=== PATIENT | female | born 1945 | race Caucasian/White ===

== ENCOUNTER 2017-10-19 06:49 | Day surgery (SDC) | payer MEDICARE, OTHER ==
[~2017-10-19 06:49] MED LIST: BUPIVACAINE HCL 0.75% INJ/PF (7.5 MG/1 ML) 10 ML SDV OS PRN; KETOROLAC TROMETHAMINE 0.45% 4 DROP/0.4 ML DROPERETTE ONE; KETOROLAC TROMETHAMINE 0.45% 4 DROP/0.4 ML DROPERETTE OS PRN; LIDOCAINE 4% INJ/PF (40 MG/ML) 5 ML AMPUL OS PRN; TETRACAINE HCL 0.5% OPH SOLN 0.6 ML DROPERETTE ONE
[2017-10-19] MEDS ORDERED: FENTANYL CITRATE INJ/PF 100 MCG/2 ML AMPUL ONE (06:58)
[2017-10-19] MEDS ORDERED: MIDAZOLAM 2 MG/2 ML INJ ONE (06:58)
[2017-10-19] MEDS ORDERED: EPINEPHRINE INJ/PF 1 MG/1 ML AMPULE ONE (07:12)
[2017-10-19] MEDS ORDERED: LIDOCAINE 1% INJ-PF (10 MG/ML) 30 ML SDV ONE ×2 (07:13→08:18)
[2017-10-19] MEDS ORDERED: CHONDR SU A NA/HYALUR INTRAOC KIT (SURGICARE) ONE (07:13)
[2017-10-19] MEDS: CYCLOPENTOLATE 0.2%/PHENYLEPHRINE 1% OPH SOLN 2 ML OS PRN ×3 (07:20→07:41)
[2017-10-19] MEDS: TROPICAMIDE 1% OPH SOLN 3 ML OS PRN ×3 (07:20→07:41)
[2017-10-19] MEDS: BESIFLOXACIN HCL 0.6% OPH SUSP 5 ML BOTTLE OS PRN ×4 (07:21→08:22)
[2017-10-19] MEDS: TETRACAINE HCL 0.5% OPH SOLN 0.6 ML DROPERETTE OS PRN ×2 (07:22→07:43)
--- NOTE | 2017-10-19 08:43 | [facility] OPERATIVE REPORT E ---
[facility] Operative Report NAME: LAUREN ROLLINS AGE: 72Y DATE OF SURGERY: 10/12/2017 ROOM: PREOPERATIVE DIAGNOSIS: CATARACT, LEFT EYE. POSTOPERATIVE DIAGNOSIS: CATARACT, LEFT EYE. OPERATION: PHACOEMULSIFICATION WITH POSTERIOR CHAMBER INRAOPERATIVE LENS, LEFT EYE. SURGEON: GILBERTO PURCELL M.D. ANESTHESIA: Topical with MAC. INDICATION FOR SURGERY: Difficulty with night driving and reading. Best corrected visual acuity 20/50. PROCEDURE: The patient was brought to the Operating Room and placed on the operative table. Following tetracaine drops, topical anesthesia was administered. This consisted of instrument wipe pledgets soaked in a solution of 4% Xylocaine mixed with 0.75% Marcaine in a 1:2 ratio. A 2 x 1 cm pledget was placed in the superior fornix. A 1 x 1 cm pledget was placed in the inferior fornix. The eye was patched shut for 5 minutes. The patch was removed. The eye was sterilely prepped and draped in the usual manner. Lid speculum was placed in the eye. The pledgets were removed. 4-0 black silk sutures were placed around the superior and the inferior rectus muscles to be used as traction. A conjunctival peritomy was made at the 10 o'clock position. Hemostasis was obtained with bipolar cautery. A posterior limbal groove was created using a crescent knife and dissected anteriorly towards the cornea. A sharp point blade was used to create a paracentesis site at the 2 o'clock position. A 2.4 mm keratome was used to enter the anterior chamber through the groove. Viscoelastic was injected into the anterior chamber. An anterior capsulotomy was performed using Utrata forceps in a capsulorrhexis fashion. Hydrodissection and hydrodelineation were performed. Phacoemulsification was performed in [id number]-koq-rctbcpw technique. A total of 5.59 seconds phaco time was used. Following this, the I/A unit was used to remove residual cortex. Viscoelastic was injected into the capsular bag. Intraocular lens model SN60WF, 25.0 diopters, serial number [id number] was placed in the capsular bag. The I/A unit was used to remove residual viscoelastic. The wound was seen to be watertight under high and low pressure, and no sutures were placed. The intraocular lens was well centered. The pressure was adjusted in the eye to normal pressure. The 4-0 black silk sutures and lid speculum were removed. The eye was shielded after Besivance drops were placed. The patient tolerated the procedure well and was sent to the Recovery Room in good condition. DICTATING PHYSICIAN: GILBERTO PURCELL M.D. DICTATING PHYSICIAN: GILBERTO PURCELL M.D. DICTATING PHYSICIAN: GILBERTO PURCELL M.D. [id number] Y#: [id number] ID: [id number] JOB#: [id number] ACCT: [id number] cc:GILBERTO PURCELL M.D. >
--- NOTE | 2017-10-19 08:49 | [facility] DISCHARGE SUMMARY E ---
[facility] Discharge Summary NAME: LAUREN ROLLINS AGE: 72Y ADMITTED: 10/19/2017 DISCHARGED: 10/19/2017 HOSPITAL COURSE: The patient is a 72-year-old lady who underwent an uneventful cataract extraction with intraocular lens implant left eye on 10/19/17. She will be discharged to home. She is instructed to resume preoperative medications, take Tylenol as needed for discomfort, to keep her eye shielded, to use Besivance, Durezol and Ilevro at 3:00 p.m. and 8:00 p.m., and to follow up in my office in 1 day. DICTATING PHYSICIAN: GILBERTO PURCELL M.D. [id number] PHY#: [id number] ID: [id number] JOB#: [id number] ACCT: [id number] cc:GILBERTO PURCELL M.D. >
[2017-10-20] MEDS ORDERED: CYCLOPENTOLATE 0.2%/PHENYLEPHRINE 1% OPH SOLN 2 ML OS PRN ×2 (05:00)
[2017-10-20] MEDS ORDERED: TROPICAMIDE 1% OPH SOLN 3 ML OS PRN ×2 (05:00)
[2017-10-20] MEDS ORDERED: BESIFLOXACIN HCL 0.6% OPH SUSP 5 ML BOTTLE OS PRN ×2 (05:00)
[2017-10-20] MEDS ORDERED: KETOROLAC TROMETHAMINE 0.45% 4 DROP/0.4 ML DROPERETTE OS PRN ×2 (05:00)
[2017-10-20] MEDS ORDERED: LIDOCAINE 4% INJ/PF (40 MG/ML) 5 ML AMPUL OS PRN ×2 (05:00)
[2017-10-20] MEDS ORDERED: TETRACAINE HCL 0.5% OPH SOLN 0.6 ML DROPERETTE OS PRN ×2 (05:00)
[2017-10-20] MEDS ORDERED: BUPIVACAINE HCL 0.75% INJ/PF (7.5 MG/1 ML) 10 ML SDV OS PRN ×2 (05:00)
== END 2017-10-19 09:09 | disposition home or self-care (01) ==
LOC: SC 06:49
PROVIDERS: ATTEND Ophthalmology
PROC: 08RK3JZ Replacement of Left Lens with Synthetic Substitute, Percutaneous Approach (ICD-10-PCS; principal; 2017-10-19 08:00)
DX: H25.813 Combined forms of age-related cataract, bilateral (principal); M19.90 Unspecified osteoarthritis, unspecified site; I10 Essential (primary) hypertension; H40.033 Anatomical narrow angle, bilateral; H04.123 Dry eye syndrome of bilateral lacrimal glands; I49.9 Cardiac arrhythmia, unspecified; H52.4 Presbyopia; H43.813 Vitreous degeneration, bilateral; K21.9 Gastro-esophageal reflux disease without esophagitis; E66.9 Obesity, unspecified; Z88.0 Allergy status to penicillin; Z68.41 Body mass index [BMI] 40.0-44.9, adult; Z79.899 Other long term (current) drug therapy
CPT/HCPCS: 66984; V2632; J3490 ×2; 142; J0171; J2250; J3010

== ENCOUNTER 2017-11-11 10:07 | Day surgery (SDC) | payer MEDICARE, OTHER ==
[~2017-11-11 10:07] MED LIST changes: +BUPIVACAINE HCL 0.75% INJ/PF (7.5 MG/1 ML) 10 ML SDV OD PRN; -BUPIVACAINE HCL 0.75% INJ/PF (7.5 MG/1 ML) 10 ML SDV OS PRN; +CHONDR SU A NA/HYALUR INTRAOC KIT (SURGICARE) ONE; +EPINEPHRINE INJ/PF 1 MG/1 ML AMPULE ONE; +KETOROLAC TROMETHAMINE 0.45% 4 DROP/0.4 ML DROPERETTE OD PRN; -KETOROLAC TROMETHAMINE 0.45% 4 DROP/0.4 ML DROPERETTE ONE; -KETOROLAC TROMETHAMINE 0.45% 4 DROP/0.4 ML DROPERETTE OS PRN; +LIDOCAINE 1% INJ-PF (10 MG/ML) 30 ML SDV ONE; +LIDOCAINE 4% INJ/PF (40 MG/ML) 5 ML AMPUL OD PRN; -LIDOCAINE 4% INJ/PF (40 MG/ML) 5 ML AMPUL OS PRN; -TETRACAINE HCL 0.5% OPH SOLN 0.6 ML DROPERETTE ONE
[2017-11-11] MEDS: TROPICAMIDE 1% OPH SOLN 3 ML OD PRN ×3 (10:17→10:37)
[2017-11-11] MEDS: BESIFLOXACIN HCL 0.6% OPH SUSP 5 ML BOTTLE OD PRN ×3 (10:17→11:23)
[2017-11-11] MEDS: CYCLOPENTOLATE 0.2%/PHENYLEPHRINE 1% OPH SOLN 2 ML OD PRN ×3 (10:17→10:37)
[2017-11-11] MEDS: TETRACAINE HCL 0.5% OPH SOLN 0.6 ML DROPERETTE OD PRN ×2 (10:18→10:37)
[2017-11-11] MEDS ORDERED: MIDAZOLAM 2 MG/2 ML INJ ONE (10:48)
--- NOTE | 2017-11-11 11:39 | [facility] OPERATIVE REPORT E ---
[facility] NAME: LAUREN ROLLINS AGE: 72Y DATE OF SURGERY: 11/11/2017 ROOM: PREOPERATIVE DIAGNOSIS: Cataract, right eye.. POSTOPERATIVE DIAGNOSIS: Cataract, right eye. PROCEDURE PERFORMED: Phacoemulsification with posterior chamber intraocular lens, right eye. SURGEON: Jazmin Purcell M.D. ANESTHESIA: Topical with MAC. INDICATIONS FOR SURGERY: Narrow anterior chamber angles, difficulty reading road signs. BEST CORRECTED VISUAL ACUITY: 20/50. DESCRIPTION OF PROCEDURE: The patient was brought to the operating room and placed on the operative table. Following tetracaine drops, topical anesthesia was administered. This consisted of instrument wipe pledgets soaked in a solution of 4% Xylocaine mixed with 0.75% Marcaine in a 1:2 ratio. A 2 x 1 cm pledget was placed in the superior fornix. A 1 x 1 cm pledget was placed in the inferior fornix. The eye was patched shut for 5 minutes. The patch was removed. The eye was sterilely prepped and draped in the usual manner. Lid speculum was placed in the eye. The pledgets were removed, 4-0 black silk sutures were placed around the superior and the inferior rectus muscles to be used as traction. A conjunctival peritomy was made at the 10 o'clock position. Hemostasis was obtained with bipolar cautery. A posterior limbal groove was created using a crescent knife and dissected anteriorly towards the cornea. A sharp point blade was used to create a paracentesis site at the 2 o'clock position. A 2.4 mm keratome was used to enter the anterior chamber through the groove. Viscoelastic was injected into the anterior chamber. An anterior capsulotomy was performed using Utrata forceps in a capsulorrhexis fashion. Hydrodissection and hydrodelineation were performed. Phacoemulsification was performed in yqdwon-pxg-hynxlnq technique. Total phaco time 6.6 CDE. Following this, the I/A unit was used to remove residual cortex. Viscoelastic was injected into the capsular bag. Intraocular lens Model SN60WF, 24.5 diopters, serial number [id number] was placed in the capsular bag. The I/A unit was used to remove residual viscoelastic. The wound was seen to be watertight under high and low pressure, and no sutures were placed. The intraocular lens was well centered. The pressure was adjusted in the eye to normal pressure. The 4-0 black silk sutures and lid speculum were removed. The eye was shielded after Besivance drops were placed. The patient tolerated the procedure well and was sent to the recovery room in good condition. DICTATING PHYSICIAN: JAZMIN PURCELL M.D. [id number] PHY#: [id number] ID: [id number] JOB#: [id number] ACCT: [id number] cc:JAZMIN PURCELL M.D. >
--- NOTE | 2017-11-11 11:49 | [facility] DISCHARGE SUMMARY E ---
[facility] Discharge Summary NAME: LAUREN ROLLINS AGE: 72Y ADMITTED: 11/11/2017 DISCHARGED: 11/11/2017 HOSPITAL COURSE: The patient is a 72-year-old lady who underwent uneventful cataract extraction with intraocular lens implant, right eye on 11/11/2017. She will be discharged to home. She was instructed to resume preoperative medications, to take Tylenol as needed for discomfort, to keep her eye shielded, to use Besivance, Durezol, and Ilevro at 3:00 p.m. and 8:00 p.m., and to follow up in my office in 1 day. DICTATING PHYSICIAN: GILBERTO PURCELL M.D. [id number] PHY#: [id number] ID: [id number] JOB#: [id number] ACCT: [id number] cc:GILBERTO PURCELL M.D. >
== END 2017-11-11 12:04 | disposition home or self-care (01) ==
LOC: SC 10:07
PROVIDERS: ATTEND Ophthalmology
DX: H25.811 Combined forms of age-related cataract, right eye (principal); Z96.1 Presence of intraocular lens; I10 Essential (primary) hypertension; K21.9 Gastro-esophageal reflux disease without esophagitis; I49.9 Cardiac arrhythmia, unspecified; Z79.899 Other long term (current) drug therapy
CPT/HCPCS: 66984; V2632; J2250; J3490 ×4; A9270; J0171; 142

== ENCOUNTER 2019-01-09 07:33 | Inpatient (IN) | payer MEDICARE, OTHER ==
--- NOTE | 2018-12-22 23:21 | EKG REPORT ---
SEVERITY:- ABNORMAL ECG - SINUS RHYTHM ANTERIOR INFARCT, AGE INDETERMINATE : Confirmed by: Jorge Burroughs 22-Dec-2018 23:20:50
[~2019-01-09 07:33] MED LIST changes: -BUPIVACAINE HCL 0.75% INJ/PF (7.5 MG/1 ML) 10 ML SDV OD PRN; +BUPIVACAINE INJ/PF LIPOSOME/PF 266 MG/20 ML SDV INJ PRN; -CHONDR SU A NA/HYALUR INTRAOC KIT (SURGICARE) ONE; +CLINDAMYCIN 600 MG/D5W RTU 600 MG/50 ML RTUPB IV PRN; -EPINEPHRINE INJ/PF 1 MG/1 ML AMPULE ONE; +IBUPROFEN 800 MG in NORMAL SALINE 250 ML IV PRN; -KETOROLAC TROMETHAMINE 0.45% 4 DROP/0.4 ML DROPERETTE OD PRN; +LACTATED RINGERS 1000 ML IV PRN; +LIDOCAINE 0.5% INJ-PF (5 MG/ML) 50 ML SDV SUBCUT PRN; -LIDOCAINE 1% INJ-PF (10 MG/ML) 30 ML SDV ONE; -LIDOCAINE 4% INJ/PF (40 MG/ML) 5 ML AMPUL OD PRN; +OXYCODONE HCL SR 10 MG TABLET PO PRN; +PANTOPRAZOLE SODIUM 20 MG TABLET.DR PO PRN; +VANCOMYCIN HCL 1,000 MG in DEXTROSE 5%-WATER 250 ML IV PRN
[2019-01-09] MEDS ORDERED: PANTOPRAZOLE SODIUM 20 MG TABLET.DR PO ONE (07:46)
[2019-01-09] MEDS ORDERED: OXYCODONE HCL SR 10 MG TABLET PO ONE (07:46)
[2019-01-09] MEDS ORDERED: CEFAZOLIN INJ 1 GM VIAL ONE (07:47)
[2019-01-09] MEDS ORDERED: MIDAZOLAM 2 MG/2 ML INJ ONE (08:16)
[2019-01-09] MEDS ORDERED: ONDANSETRON HCL INJ/PF 4 MG/2 ML SDV ONE ×2 (08:16→13:13)
[2019-01-09] MEDS ORDERED: PROPOFOL INJ 200 MG/20 ML VIAL IV ONE (08:17)
[2019-01-09] MEDS ORDERED: TRANEXAMIC ACID INJ/PF 1,000 MG/10 ML SDV IV ONE ×2 (08:17→12:23)
[2019-01-09] MEDS ORDERED: THROMBIN (BOVINE) TOPICAL 20000 UNIT VIAL ONE (09:04)
[2019-01-09] MEDS ORDERED: BUPIVACAINE HCL 0.25% /EPINEPHRINE INJ/PF 30 ML SDV ONE (09:04)
[2019-01-09] MEDS ORDERED: THROMBIN (BOVINE) TOPICAL 5000 UNIT VIAL ONE (09:04)
[2019-01-09] MEDS ORDERED: CLINDAMYCIN 600 MG/D5W RTU 600 MG/50 ML RTUPB IV ONE (09:40)
[2019-01-09] MEDS ORDERED: DIPHENHYDRAMINE HCL 50 MG/ML VIAL IV PRN ×2 (10:48→10:59)
[2019-01-09] MEDS ORDERED: MORPHINE SULFATE 10 MG/ML INJ IV PRN ×3 (10:48→17:44)
[2019-01-09] MEDS ORDERED: FENTANYL CITRATE INJ/PF 100 MCG/2 ML AMPUL IV PRN ×2 (10:48)
[2019-01-09] MEDS ORDERED: PROMETHAZINE HCL INJ 25 MG/1 ML VIAL IV PRN ×3 (10:48→17:35)
[2019-01-09] MEDS ORDERED: OXYCODONE HCL IR 5 MG TABLET PO PRN (10:59)
[2019-01-09] MEDS ORDERED: MAG HYDROX/AL HYDROX/SIMETH SUSP 30 ML UDCUP PO PRN (10:59)
[2019-01-09] MEDS ORDERED: ACETAMINOPHEN 325 MG TABLET PO PRN (10:59)
[2019-01-09] MEDS ORDERED: ZOLPIDEM TARTRATE 5 MG TABLET PO PRN (10:59)
[2019-01-09] MEDS ORDERED: ONDANSETRON 4 MG TAB.RAPDIS PO PRN (10:59)
--- NOTE | 2019-01-09 11:03 | Operative Report ---
Operative Report DATE OF SURGERY: 01/09/19 PREOPERATIVE DIAGNOSIS: Right knee arthritis OPERATION: Right knee arthroplasty SURGEON: NOE RIGGINS ANESTHESIA: Spinal TISSUE REMOVED OR ALTERED: Bone to pathology ESTIMATED BLOOD LOSS: 100 INTRAOPERATIVE FINDINGS: Loose bodies PROCEDURE: Implants used: Femur: Size 5 [place] triathlon CR cemented femur Tibia: 4 tibia Tibial liner: 11 mm CS insert Patella: 35 mm oval patella Procedure with the patient supine on the operating table the right the limb is prepped and draped in a sterile fashion. The limb was elevated for exsanguination and the tourniquet inflated to 280 torr. A standard midline median parapatellar approach the knee is taken. Access is gained to the femoral canal through the intercondylar notch. Intramedullary alignment instrumentation used to resect 10 mm of distal femur in 5 of valgus. Sizing guide indicated a size 5 femur. Appropriate cutting jig is then used to fashion anterior posterior and chamfer cuts. A trial reduction femurs performed and this is judged to be adequate. Attention was next turned to the tibia. Using an extra medullary alignment system 9 millimeters was resected off the lateral tibial plateau. This is sized to a size 4 tibia. A trial reduction was now performed with a 5 femur and a 4 tibia using a 11 millimeters spacer. It is full extension and central patellofemoral tracking. The articular surface the patella was next resected using an oscillating saw. All trial implants were removed. Polymethylmethacrylate is mixed and used to cement the above implants in place. On adequate curing the cement excess cement was removed the tourniquet was deflated hemostasis obtained the wound is then closed in layers using interrupted Vicryl followed by dorian. A sterile compressive dressing was applied and the patient returned to recovery room in satisfactory condition.
--- NOTE | 2019-01-09 12:11 | RADIOLOGY REPORT (SQ) ---
EXAM DESCRIPTION: KNEE RIGHT 2 VIEWS COMPLETED DATE/TIME: 01/09/2019 11:46 am REASON FOR STUDY: Post OP -Long Cassette in PACU M17.11 UNILATERAL PRIMARY OSTEOARTHRITIS, RIGHT KN EE COMPARISON: None. NUMBER OF VIEWS: Two view(s). TECHNIQUE: Digital radiographic images of the right knee post-procedure. LIMITATIONS: None. FINDINGS: BONES: No worrisome or unexpected findings post-procedure. DEVICE: Total knee arthroplasty SOFT TISSUES: No worrisome findings. Expected postoperative soft tissue changes. IMPRESSION: SATISFACTORY POSTOPERATIVE RIGHT KNEE. TECHNICAL DOCUMENTATION: JOB ID: [id number] [employer]- All Rights Reserved Reading location - IP/workstation name: [email or web address]
[2019-01-09] MEDS ORDERED: MORPHINE SULFATE 10 MG/ML INJ ONE (13:28)
[2019-01-09] MEDS: MORPHINE SULFATE 10 MG/ML INJ IV PRN ×2 (14:54→16:12)
[2019-01-09] MEDS: LOSARTAN POTASSIUM 25 MG TABLET PO SCH (16:12)
[2019-01-09] MEDS: IBUPROFEN 800 MG in NORMAL SALINE 250 ML IV SCH (17:53)
[2019-01-09] MEDS: SENNOSIDES/DOCUSATE 8.6-50 MG 1 EACH TABLET PO SCH (17:59)
[2019-01-09] MEDS: PREGABALIN 75 MG CAPSULE PO SCH (17:59)
[2019-01-09] MEDS: RINGERS SOLUTION,LACTATED 1,000 ML IV PRN (18:01)
[2019-01-09] MEDS: OXYCODONE HCL SR 10 MG TABLET PO SCH (21:04)
[2019-01-09] MEDS ORDERED: VANCOMYCIN HCL 1,000 MG in DEXTROSE 5%-WATER 250 ML IV ONE (22:59)
[2019-01-10] MEDS: IBUPROFEN 800 MG in NORMAL SALINE 250 ML IV SCH ×3 (01:07→17:16)
[2019-01-10] MEDS: PANTOPRAZOLE SODIUM 40 MG TABLET.DR PO SCH (05:09)
[2019-01-10 06:58] LABS: HEMOGLOBIN 11.2 g/dL (12.0-15.5); MEAN CORPUSCULAR HEMOGLOBIN 29.6 pg (27.0-33.4); MEAN CORPUSCULAR HGB CONC 33.1 g/dL (32.0-36.0); MEAN CORPUSCULAR VOLUME 90 fl (80-97); PLATELET COUNT 206 10^3/uL (150-450); RED CELL DISTRIBUTION WIDTH 13.7 % (11.5-14.0); WHITE BLOOD COUNT 5.8 10^3/uL (4.0-10.5)
--- NOTE | 2019-01-10 07:00 | PDOC DISCHARGE SUMMARY ---
General - Admit/Disc Date/PCP Admission Date/Primary Care Provider: 01/09/19 07:33 SHAVON SUH MD Discharge Date: 01/10/19 - Discharge Diagnosis (1) Arthritis of right knee Is this a current diagnosis for this admission?: Yes - Additional Information Resuscitation Status: Full Code Home Medications: Celecoxib [Celebrex 200 mg Capsule] 200 mg PO DAILY 12/22/18 Carboxymethylcellulose Sodium [Refresh Tears] 1 drop OU BID 01/09/19 Diltiazem HCl [Cardizem Cd 120 mg Capsule] 120 mg PO DAILY 01/09/19 Nystatin [Mycostatin Topical Powder 15 gm] 1 applic TP BID 01/09/19 Pantoprazole Sodium [Protonix [address] Tablet] 40 mg PO QAM 01/09/19 Telmisartan [Micardis 20 mg Tablet] 20 mg PO DAILY 01/09/19 Tramadol HCl [Ultram 50 mg Tablet] 50 mg PO Q6HP PRN 01/09/19 History of Present Illness History of Present Illness: LAUREN ROLLINS is a 73 year old female Patient is a 73-year-old white female with progressive right knee pain and functional disability secondary to arthritis. Patient is admitted for elective right knee arthroplasty. Hospital Course Hospital Course: Patient is admitted through the operating motion undergoes an uncomplicated right knee arthroplasty. She is returned to floor in satisfactory condition. She makes progress with physical therapy on the first postoperative day. Her pain is well controlled. Physical Exam Vital Signs: Temp Pulse Resp BP Pulse Ox 36.3 C 71 18 106/44 L 86 L 01/09/19 20:55 01/10/19 04:27 01/09/19 20:55 01/10/19 04:27 01/10/19 04:27 Intake & Output 01/08/19 01/09/19 01/10/19 06:59 06:59 06:59 Intake Total 6187 Output Total 50 Balance 6137 Weight 119.8 kg Physical Exam: Middle-aged white female sleeping soundly in bed. When awoken she is alert, oriented, and appropriate. General appearance: PRESENT: no acute distress, mild distress Head exam: PRESENT: normocephalic Respiratory exam: PRESENT: unlabored Cardiovascular exam: PRESENT: RRR Pulses: PRESENT: +1 pedal pulses bilateral Vascular exam: PRESENT: normal capillary refill GI/Abdominal exam: PRESENT: soft Rectal exam: PRESENT: deferred Extremities exam: PRESENT: other - Right lower extremity dressing clean dry and intact Neurological exam: PRESENT: alert, awake, oriented to person, oriented to place, oriented to time, oriented to situation. ABSENT: motor sensory deficit Psychiatric exam: PRESENT: appropriate affect, normal mood. ABSENT: homicidal ideation, suicidal ideation Skin exam: PRESENT: dry, intact, warm. ABSENT: cyanosis, rash Results Impressions: Knee X-Ray 01/09/19 00:00 IMPRESSION: SATISFACTORY POSTOPERATIVE RIGHT KNEE. Status: Imported from PACS Qualifiers - * PATIENT BEING DISCHARGED WITH ANY OF THE FOLLOWING DIAGNOSIS: No VTE patient discharged on overlapping Therapy?: Yes Acute Heart Failure Is this a Heart Failure Patient?: No Plan Discharge Plan: Patient be discharged home with home health services and DME. Follow-up with Dr. Diaz and [facility] for surgery in 2 weeks for staple removal.
[2019-01-10 07:25] LABS: ANION GAP 8 (5-19); BLOOD UREA NITROGEN 9 mg/dL (7-20); CALCIUM 9.1 mg/dL (8.4-10.2); CARBON DIOXIDE 29 mmol/L (22-30); CHLORIDE 105 mmol/L (98-107); GLUCOSE 103 mg/dL (75-110); POTASSIUM 4.6 mmol/L (3.6-5.0); SODIUM 142.1 mmol/L (137-145)
[2019-01-10] MEDS: MORPHINE SULFATE 10 MG/ML INJ IV PRN (07:26)
[2019-01-10] MEDS ORDERED: PANTOPRAZOLE SODIUM 40 MG TABLET.DR PO SCH (08:00)
[2019-01-10] MEDS ORDERED: ASPIRIN 81 MG TABLET, CHEWABLE PO SCH (10:00)
[2019-01-10] MEDS ORDERED: DILTIAZEM HCL 120 MG CAP.SR.24H PO SCH (10:00)
[2019-01-10] MEDS ORDERED: PRENATAL VITAMIN W DHA CAPSULE PO SCH (10:00)
[2019-01-10] MEDS ORDERED: (PENDING PHARMACY ID) (Telmisartan [Micardis 20 Mg Tablet] 20 MG) PO SCH (10:00)
[2019-01-10] MEDS: OXYCODONE HCL SR 10 MG TABLET PO SCH ×2 (10:05→22:01)
[2019-01-10] MEDS: PREGABALIN 75 MG CAPSULE PO SCH ×2 (10:07→17:16)
[2019-01-10] MEDS: SENNOSIDES/DOCUSATE 8.6-50 MG 1 EACH TABLET PO SCH ×2 (10:07→17:16)
[2019-01-10] MEDS: LOSARTAN POTASSIUM 25 MG TABLET PO SCH (10:07)
[2019-01-10] MEDS: RINGERS SOLUTION,LACTATED 1,000 ML IV PRN (10:08)
[2019-01-11] MEDS: MORPHINE SULFATE 10 MG/ML INJ IV PRN (00:21)
[2019-01-11] MEDS: IBUPROFEN 800 MG in NORMAL SALINE 250 ML IV SCH (04:00)
[2019-01-11] MEDS: PANTOPRAZOLE SODIUM 40 MG TABLET.DR PO SCH (05:24)
[2019-01-11 06:09] LABS: HEMATOCRIT 33.1 % (36.0-47.0); HEMOGLOBIN 11.1 g/dL (12.0-15.5); MEAN CORPUSCULAR HEMOGLOBIN 29.8 pg (27.0-33.4); MEAN CORPUSCULAR HGB CONC 33.6 g/dL (32.0-36.0); MEAN CORPUSCULAR VOLUME 89 fl (80-97); PLATELET COUNT 177 10^3/uL (150-450); RED BLOOD COUNT 3.73 10^6/uL (3.72-5.28); RED CELL DISTRIBUTION WIDTH 13.9 % (11.5-14.0); WHITE BLOOD COUNT 6.4 10^3/uL (4.0-10.5)
[2019-01-11 09:10] VITALS: BP 142/58
== END 2019-01-11 13:57 | disposition home health service (06) | DRG 470 ==
LOC: INOR 07:33 → 4N 14:04 → 4S 17:07
PROVIDERS: ADMIT Orthopaedic Surgery; ATTEND Orthopaedic Surgery
PROC: 0SRC0J9 Replacement of Right Knee Joint with Synthetic Substitute, Cemented, Open Approach (ICD-10-PCS; principal; 2019-01-09 10:00)
DX: M17.11 Unilateral primary osteoarthritis, right knee (principal); Z68.42 Body mass index [BMI] 45.0-49.9, adult; I10 Essential (primary) hypertension; E66.9 Obesity, unspecified; Z79.899 Other long term (current) drug therapy; Z88.0 Allergy status to penicillin; Z90.710 Acquired absence of both cervix and uterus
CPT/HCPCS: 01402; 36415; 80048; 85027; 88305; 88311; 93005; 93010; 94799; C1713; C1776; J0690; J1741; J2250; J2270; J2405; J2550; J2704; J3370; J3490; J7050; J7060; J7120; S0119

== ENCOUNTER 2019-08-22 12:33 | Emergency (ER) | payer MEDICARE ==
--- NOTE | 2019-08-22 12:53 | ER Document Report ---
ED Medical Screen (RME) - General Chief Complaint: Altered Mental Status Stated Complaint: ALTERED MENTAL STATUS Time Seen by Provider: 08/22/19 12:44 Primary Care Provider: SHAVON SUH MD [Primary Care Provider] - Follow up as needed TRAVEL OUTSIDE OF THE [place] IN LAST 30 DAYS: No - HPI Notes: 08/22/19 12:50 Patient is a 74-year-old female with a history of hypertension who recently lost her in June who presents per the request of her daughter who is accompanying her for altered mental status. Daughter states that she was confused this morning and yesterday not remembering what went on that day or where her daughter was yesterday. She told her daughter this morning that she did not know was going on and she does not remember if she took her medications. Patient is irritable and states that there is nothing wrong with her and that she is just sad because of her loss. No SI or HI. Daughter states that she is concerned about a possible brain bleed. She is not on any blood thinners. No injury. I have treated and performed a rapid initial assessment of this patient. A comprehensive ED assessment and evaluation of the patient, analysis of test results and completion of medical decision making process will be conducted by additional ED providers. PHYSICAL EXAMINATION: GENERAL: Well-appearing, well-nourished and in no acute distress. A&Ox4. Answers questions appropriately. Neuro: NIH 0, GCS 15, cranial nerves grossly intact. Strength 5+/5 b/l. - Related Data Allergies/Adverse Reactions: Penicillins Allergy (Intermediate, Verified 12/21/18 12:00) RASH Past Medical History - Social History Chew tobacco use (# tins/day): No Frequency of alcohol use: None Drug Abuse: None - Past Medical History Cardiac Medical History: Reports: Hx Hypertension Denies: Hx Atrial Fibrillation, Hx Congestive Heart Failure, Hx Coronary Artery Disease, Hx Heart Attack, Hx Hypercholesterolemia, Hx Peripheral Vascular Disease, Hx Heart Murmur Pulmonary Medical History: Denies: Hx Asthma, Hx Bronchitis, Hx COPD Neurological Medical History: Denies: Hx Cerebrovascular Accident, Hx Seizures Endocrine Medical History: Denies: Hx Hyperthyroidism, Hx Hypothyroidism Renal/ Medical History: Denies: Hx Kidney Stones, Hx Ovarian Cysts, Hx Pelvic Inflammatory Disease Malignancy Medical History: Denies: Hx Breast Cancer, Hx Cervical Cancer, Hx Ovarian Cancer GI Medical History: Reports: Hx Gastroesophageal Reflux Disease. Denies: Hx Crohn's Disease, Hx Hepatitis, Hx Hiatal Hernia, Hx Irritable Bowel, Hx Liver Failure, Hx Pancreatitis, Hx Ulcer Musculoskeltal Medical History: Reports Hx Arthritis, Denies Hx Fibromyalgia, Denies Hx Muscular Dystrophy Psychiatric Medical History: Denies: Hx Bipolar Disorder, Hx Depression, Hx Post Traumatic Stress Disorder Traumatic Medical History: Denies: Hx Fractures Infectious Medical History: Denies: Hx Hepatitis Past Surgical History: Reports: Hx Cholecystectomy, Hx Hysterectomy. Denies: Hx Appendectomy, Hx Bowel Surgery, Hx Section, Hx Colostomy, Hx Coronary Artery Bypass Graft, Hx Gastric Bypass Surgery, Hx Herniorrhaphy, Hx Mastectomy, Hx Open Heart Surgery, Hx Pacemaker, Hx Tonsillectomy, Hx Tubal Ligation Doctor's Discharge - Discharge Referrals: SHAVON SUH MD [Primary Care Provider] - Follow up as needed
[2019-08-22 13:27] LABS: ABSOLUTE EOSINOPHILS # (AUTO) 0.1 10^3/uL (0.0-0.6); ABSOLUTE LYMPHOCYTES (AUTO) 1.1 10^3/uL (0.5-4.7); ABSOLUTE MONOCYTES (AUTO) 0.5 10^3/uL (0.1-1.4); ABSOLUTE NEUT (AUTO) 4.2 10^3/uL (1.7-8.2); BASOPHILS % (AUTO) 0.6 % (0-2); EOSINOPHILS % (AUTO) 2.4 % (0-6); HEMATOCRIT 38.9 % (36.0-47.0); HEMOGLOBIN 13.1 g/dL (12.0-15.5); LYMPHOCYTES % (AUTO) 18.5 % (13-45); MEAN CORPUSCULAR HEMOGLOBIN 29.5 pg (27.0-33.4); MEAN CORPUSCULAR HGB CONC 33.8 g/dL (32.0-36.0); MEAN CORPUSCULAR VOLUME 87 fl (80-97); MONOCYTES % (AUTO) 8.3 % (3-13); PLATELET COUNT 273 10^3/uL (150-450); RED BLOOD COUNT 4.45 10^6/uL (3.72-5.28); RED CELL DISTRIBUTION WIDTH 13.9 % (11.5-14.0); SEGMENTED NEUTROPHILS % (AUTO) 70.2 % (42-78); TOTAL CELLS COUNTED % (AUTO) 100 %
[2019-08-22 13:32] LABS: APPEARANCE,URINE CLEAR; BILIRUBIN,URINE NEGATIVE (NEGATIVE); COLOR,URINE COLORLESS; GLUCOSE, URINE NEGATIVE (NEGATIVE); KETONES,URINE NEGATIVE (NEGATIVE); PROTEIN,URINE NEGATIVE (NEGATIVE); URINE SPECIFIC GRAVITY 1.002; UROBILINOGEN,URINE NEGATIVE mg/dL (<2.0)
[2019-08-22 13:51] LABS: ALBUMIN 4.3 g/dL (3.5-5.0); ALKALINE PHOSPHATASE 112 U/L (38-126); ANION GAP 12 (5-19); ASPARTATE AMINO TRANSFERASE 19 U/L (14-36); BILIRUBIN,DIRECT 0.3 mg/dL (0.0-0.4); BILIRUBIN,TOTAL 0.6 mg/dL (0.2-1.3); BLOOD UREA NITROGEN 13 mg/dL (7-20); CALCIUM 10.1 mg/dL (8.4-10.2); CARBON DIOXIDE 30 mmol/L (22-30); CHLORIDE 102 mmol/L (98-107); GLUCOSE 103 mg/dL (75-110); POTASSIUM 4.7 mmol/L (3.6-5.0); TOTAL PROTEIN 7.7 g/dL (6.3-8.2)
--- NOTE | 2019-08-22 13:52 | RADIOLOGY REPORT (SQ) ---
EXAM DESCRIPTION: CT HEAD WITHOUT COMPLETED DATE/TIME: 08/22/2019 1:24 pm REASON FOR STUDY: AMS COMPARISON: None. TECHNIQUE: Axial images acquired through the brain without intravenous contrast. Images reviewed wi th bone, brain and subdural windows. Additional sagittal and coronal reconstructions were generated. Images stored on PACS. All CT scanners at this facility use dose modulation, iterative reconstruction, and/or weight based d osing when appropriate to reduce radiation dose to as low as reasonably achievable (ALARA). [facility]: Dose Right [facility]: CareDose [facility]: Dose Right [facility]: Teradose 4D [facility]: NGDATA RADIATION DOSE: CT Rad equipment meets quality standard of care and radiation dose reduction techniq ues were employed. CTDIvol: 53.2 mGy. DLP: 1044 mGy-cm. mGy. LIMITATIONS: None. FINDINGS: VENTRICLES: Normal size and contour. CEREBRUM: No masses. No hemorrhage. No midline shift. No evidence for acute infarction. Normal gra y/white matter differentiation. No areas of low density in the white matter. CEREBELLUM: No masses. No hemorrhage. No alteration of density. No evidence for acute infarction. EXTRAAXIAL SPACES: No fluid collections. No masses. ORBITS AND GLOBE: No intra- or extraconal masses. Normal contour of globe without masses. CALVARIUM: No fracture. PARANASAL SINUSES: No fluid or mucosal thickening. SOFT TISSUES: No mass or hematoma. OTHER: No other significant finding. IMPRESSION: NORMAL BRAIN CT WITHOUT CONTRAST. EVIDENCE OF ACUTE STROKE: NO. COMMENT: Quality ID # [id number]: Final reports with documentation of one or more dose reduction techniques (e.g., Automated exposure control, adjustment of the mA and/or kV according to patient size, use of iterative reconstruction technique) TECHNICAL DOCUMENTATION: JOB ID: [id number] [employer]- All Rights Reserved Reading location - IP/workstation name: [email or web address]
[2019-08-22 13:53] LABS: URINE AMPHETAMINES SCREEN NEGATIVE; URINE BARBITURATES SCREEN NEGATIVE; URINE BENZODIAZEPINES SCREEN NEGATIVE; URINE COCAINE SCREEN NEGATIVE; URINE MARIJUANA (THC) SCREEN NEGATIVE; URINE METHADONE SCREEN NEGATIVE; URINE PHENCYCLIDINE SCREEN NEGATIVE
--- NOTE | 2019-08-22 14:09 | ER Document Report ---
ED Neuro Symptoms/Deficit <MICHELLE EDDY - Last Filed: 08/22/19 14:41> - General Mode of Arrival: Ambulatory Information source: Patient, Relative TRAVEL OUTSIDE OF THE [place] IN LAST 30 DAYS: No - HPI Patient complains to provider of: Other - short term memory impairment per daughter Onset: This morning Awoke with symptoms: No Symptoms are: Intermittent episodes. No: Constant, Worse/persistent, Noted on awakening Duration: Better Quality of pain: denies: No pain, Achy, Burning, Cramping, Dull, Fullness, Pressure, Sharp, Stabbing, Throbbing, Other Severity: Moderate Loss of consciousness: No: No loss of consciousness, Unsure, Dazed, Brief (seconds), Prolonged (minutes), Still comatose Baseline Cognitive: Memory loss. No: Alert, oriented X 3, Alert but disoriented, Alert but confused, Poor alertness, Unknown Baseline Gait: No: Walks w/o assistance, Uses a cane/walker, Walks only w/ assistance, Stands for transfers, Unable to walk, Unknown Pre-existing weakness: No: Face, General, Hand, Lower extremity, Upper extremity Alert To: Name/Voice Patient Orientation: Events. No: Person, Place, Time Character of altered mental status: Trouble concentrating. No: Agitated, Confused, Combative, Decreased responsiveness, Disoriented, Seizure activity, Unchanged from baseline, Unresponsive New weakness: denies: LUE, LLE, RUE, RLE, L facial, R facial, General (diffuse) Altered sensation: denies: LUE, LLE, RUE, RLE, L facial, R facial, General (diffuse) Decreased ability to stand/walk: denies: Weak, Difficult, Off balance, Cannot walk, Cannot stand Associated symptoms: denies: None, Chest pain, Back pain, Chills, Dizzy, Falling injury, Fainting, Fever, Headache, Hurts to breathe, Involuntary movements, Lightheadedness, Nausea, Neck pain, Seizure, Short of breath, Sweaty, Vomiting, Other <TAMEKA COTTO - Last Filed: 08/22/19 14:51> - General Chief Complaint: Altered Mental Status Stated Complaint: ALTERED MENTAL STATUS Time Seen by Provider: 08/22/19 12:44 Primary Care Provider: [facility] [Outside] - Follow up as needed SHAVON SUH MD [Primary Care Provider] - Follow up as needed - [facility] Notes: 74-year-old who recently in June lost her spouse of more than 50 years and ever since then apparently per her daughter has had increasing trouble with memory but however this morning had short-term memory loss recent events per remote and her memory have been intact. Is had no other complaints including no history of falls vomiting diarrhea headache blurry vision chest pain shortness of breath abdominal pain or other complaints. (TAMEKA COTTO) - Related Data Allergies/Adverse Reactions: Penicillins Allergy (Intermediate, Verified 12/21/18 12:00) RASH Past Medical History - Social History Smoking Status: Never Smoker Chew tobacco use (# tins/day): No Frequency of alcohol use: None Drug Abuse: None Family History: None Patient has suicidal ideation: No Patient has homicidal ideation: No - Past Medical History Cardiac Medical History: Reports: Hx Hypertension Denies: Hx Atrial Fibrillation, Hx Congestive Heart Failure, Hx Coronary Artery Disease, Hx Heart Attack, Hx Hypercholesterolemia, Hx Peripheral Vascular Disease, Hx Heart Murmur Pulmonary Medical History: Denies: Hx Asthma, Hx Bronchitis, Hx COPD Neurological Medical History: Denies: Hx Cerebrovascular Accident, Hx Seizures Endocrine Medical History: Denies: Hx Hyperthyroidism, Hx Hypothyroidism Renal/ Medical History: Denies: Hx Kidney Stones, Hx Ovarian Cysts, Hx Pelvic Inflammatory Disease Malignancy Medical History: Denies: Hx Breast Cancer, Hx Cervical Cancer, Hx Ovarian Cancer GI Medical History: Reports: Hx Gastroesophageal Reflux Disease. Denies: Hx Crohn's Disease, Hx Hepatitis, Hx Hiatal Hernia, Hx Irritable Bowel, Hx Liver Failure, Hx Pancreatitis, Hx Ulcer Musculoskeletal Medical History: Reports Hx Arthritis, Denies Hx Fibromyalgia, Denies Hx Muscular Dystrophy Psychiatric Medical History: Denies: Hx Bipolar Disorder, Hx Depression, Hx Post Traumatic Stress Disorder Traumatic Medical History: Denies: Hx Fractures Infectious Medical History: Denies: Hx Hepatitis Past Surgical History: Reports: Hx Cholecystectomy, Hx Hysterectomy. Denies: Hx Appendectomy, Hx Bowel Surgery, Hx Section, Hx Colostomy, Hx Coronary Artery Bypass Graft, Hx Gastric Bypass Surgery, Hx Herniorrhaphy, Hx Mastectomy, Hx Open Heart Surgery, Hx Pacemaker, Hx Tonsillectomy, Hx Tubal Ligation <TAMEKA COTTO - Last Filed: 08/22/19 14:51> Review of Systems - Review of Systems Constitutional: No symptoms reported EENT: denies: No symptoms reported, See HPI, Eye pain, Eye discharge, Blurred vision, Tearing, Double vision, Ear pain, Ear discharge, Nose pain, Nose congestion, Nose discharge, Sinus pressure, Sinus discharge, Throat pain, Difficulty swallowing, Throat swelling, Mouth pain, Mouth swelling, Dental problem, Vertigo, Other Cardiovascular: denies: No symptoms reported, See HPI, Chest pain, Palpitations, Heart racing, Orthopnea, Dyspnea, Syncope, Dizziness, Lightheaded, Edema, Other, Paroxysmal Nocturnal Dysp Respiratory: denies: No symptoms reported, See HPI, Cough, Hurts to breathe, H emoptysis, Short of breath, Sputum, Stridor, Wheezing, Other Gastrointestinal: denies: No symptoms reported, See HPI, Abdomen distended, Abdominal pain, Diarrhea, Nausea, Vomiting, Constipation, Blood streaked bowels, Poor appetite, Poor fluid intake, Blood in vomit, Black stools, Rectal bleeding, Last bowel movement, Fecal incontinence, Other Genitourinary: denies: No symptoms reported, See HPI, Burning, Dysuria, Discharge, Frequency, Flank pain, Hematuria, Incontinence, Pain, Urgency, Retention, Other Neurological/Psychological: Confusion. denies: No symptoms reported, See HPI, Dementia, Depression, Hallucinations, Anxiety, Homicidal ideation, Sensory change, Weakness, Gait changes, Loss of power, Paralysis, Seizure, Lost consciousness, Headaches, Speech impairment, Numbness, Suicidal ideation, Tingling, Tremor, Other -: Yes All other systems reviewed and negative <TAMEKA COTTO - Last Filed: 08/22/19 14:51> Physical Exam <TAMEKA COTTO - Last Filed: 08/22/19 14:51> - Vital signs Vitals: Temp Pulse Resp BP Pulse Ox 97.7 F 69 20 174/84 H 97 08/22/19 12:43 08/22/19 12:43 08/22/19 12:43 08/22/19 12:43 08/22/19 12:43 Notes: PHYSICAL EXAMINATION: GENERAL: Sad appearing, teary-eyed, but well-nourished and in mild emotional distress HEAD: Atraumatic, normocephalic. EYES: Pupils equal round and reactive to light, extraocular movements intact, sclera anicteric, conjunctiva are normal. ENT: nares patent, oropharynx clear without exudates. Moist mucous membranes. NECK: Normal range of motion, supple without lymphadenopathy LUNGS: Breath sounds clear to auscultation bilaterally and equal. No wheezes rales or rhonchi. HEART: Regular rate and rhythm without murmurs ABDOMEN: Soft, nontender, normoactive bowel sounds. No guarding, no rebound. No masses appreciated. EXTREMITIES: Normal range of motion, no pitting or edema. No cyanosis. NEUROLOGICAL: No focal neurological deficits. Moves all extremities spontaneously and on command. Alert and oriented x3. Patient does have poor short-term memory loss of questions I have asked her in the room he eventually answers after several tries. She has normal remote and long-term memory. PSYCH: Flat mood affect and crying in room. However no signs of or homicidal ideations or hallucinations. Appears to be appropriate grief response. SKIN: Warm, Dry, normal turgor, no rashes or lesions noted. (TAMEKA COTTO) Course - Laboratory Result Diagrams: 08/22/19 13:02 08/22/19 13:02 <MICHELLE EDDY - Last Filed: 08/22/19 14:41> - Laboratory Result Diagrams: 08/22/19 13:02 08/22/19 13:02 - Diagnostic Test Radiology reviewed: Image reviewed, Reports reviewed <TAMEKA COTTO - Last Filed: 08/22/19 14:51> - Vital Signs Vital signs: Temp Pulse Resp BP Pulse Ox 97.7 F 69 20 174/84 H 97 08/22/19 12:43 08/22/19 12:43 08/22/19 12:43 08/22/19 12:43 08/22/19 12:43 - Transfer of Care Notes: 08/22/19 14:10 I am doubtful that this is a TIA or a stroke. I believe it is probably part of a grief reaction from losing her spouse. We have therefore consulted the psych people for her to get outpatient counseling. Although I cannot rule out a TIA completely I did recommend to the daughter that patient start taking 81 mg aspirin once a day and follow-up with her doctor for possible referral to a neurologist. And to return if any worse (TAMEKA COTTO) Discharge <MICHELLE EDDY - Last Filed: 08/22/19 14:41> <TAMEKA COTTO - Last Filed: 08/22/19 14:51> - Discharge Clinical Impression: Grief reaction, possible tia Condition: Good Disposition: HOME, SELF-CARE Additional Instructions: You have been evaluated by both medical and behavioral health teams and have been deemed appropriate for discharge. You are encouraged to follow up with a neurologist. You are being provided with a mental health resource list in the event you change your mind regarding grief counseling. The contact information for mobile crisis is provided, as needed. AT ANY TIME, IF YOUR SYMPTOMS CHANGE SIGNIFICANTLY OR WORSEN OR YOU DEVELOP NEW SYMPTOMS, RETURN TO THE EMERGENCY DEPARTMENT IMMEDIATELY FOR RE-EVALUATION. Take 1 baby aspirin or 81 mg/day. If symptoms persist he will need an outpatient work-up with your doctor including evaluation by a neurologist for transit ischemic attack. As discussed I believe most of this is probably due to a grief reaction however discussed this with your physician return if any worse Referrals: SHAVON SUH MD [Primary Care Provider] - Follow up as needed [facility] [Outside] - Follow up as needed
[2019-08-22 14:52] VITALS: BP 158/91
--- NOTE | 2019-08-22 15:28 | PSYCHOLOGICAL NOTE ---
Psych Note - Psych Note Date seen by psych provider: 08/22/19 Time seen by psych provider: 14:10 Psych Note: Reason for consult: Daughter is concerned for patient's lapses in memory Patient is a 74 year old female who presents to ED via POV accompanied by her daughter. Patient's daughter expressed concerns regarding patient's "forgetfulness." Patient replied, "I'm fine." Patient was tearful as she expressed grief at the recent loss of her of 60 years. Patient and daughter expressed no immediate concerns for patient's safety (no leaving stove on, driving under a state of confusion, etc). Patient frequently stated, "there's nothing wrong with me." Patient was oriented to person, circumstance, and year. Patient stated, "there is no reason for me to keep up with the day; I don't have anything going on, plus I don't get the paper anymore [paper had the date on it]." Provided psychoeducation on grief. Patient pleasantly declined mental health services. Mood is normal with congruent affect. Patient's range of emotion was appropriate for conversation. Patient denies suicidal and homicidal ideations. Delusions are absent and behavior is congruent with an intact reality based presentation (i.e.: organized and linear through processes). There is no observed behavior that suggests patient is responding to internal stimuli. Patient denies current auditory and visual hallucinations. Eye contact is appropriate. Conversational speech is within normal rate, tone, and prosody. Intellectual ability appears to be within average range. Attention and concentration are good. Insight, judgment and impulse control are currently good. Medication recommendations per [facility] contracted psychiatrist Dr. Joby HAN is as follows: NONE Impression/Plan: Patient is cleared from acute psychiatric services. Patient denies suicidal and homicidal ideations. There is no observed behavior that suggests patient is responding to internal stimuli. Patient denies current auditory and visual hallucinations. Patient is linked [facility] for primary care. Patient is agreeable to following up with neurologist. Patient is not agreeable to mental health services. There is no observable behavior suggestive patient is a danger to herself or others. Dr. Fishman was consulted on the care and management of this patient; attending physician is in agreement with recommendations and disposition.
== END 2019-08-22 15:15 | disposition home or self-care (01) ==
LOC: ER 12:33
DX: F43.20 Adjustment disorder, unspecified (principal); R41.82 Altered mental status, unspecified; R41.3 Other amnesia; I10 Essential (primary) hypertension
CPT/HCPCS: 36415; 70450; 80053; 80307; 81001; 83735; 85025; 99285